=== PATIENT | male | born 1955 | race Caucasian/White ===

== ENCOUNTER → 2023-08-17 11:18 | Outpatient (REF) | payer OTHER, SELFPAY | LOC: RAD 11:18 | PROVIDERS: ATTENDING PHYSICIAN Family Medicine | DX: M25.551 Pain in right hip (principal) | CPT/HCPCS: 73502 ==

== ENCOUNTER → 2023-10-13 11:11 | Outpatient (REF) | payer OTHER, SELFPAY | LOC: RAD 11:11 | PROVIDERS: ATTENDING PHYSICIAN Family Medicine | DX: R07.9 Chest pain, unspecified (principal) | CPT/HCPCS: 71046 ==

== ENCOUNTER 2024-09-03 11:41 | Emergency (ER) | payer OTHER, MEDICARE, SELFPAY ==
[2024-09-03 11:42] VITALS: BP 121/70
--- NOTE | 2024-09-03 12:59 | ED.GENMED ---
History of Present Illness
General
Chief Complaint: Eye Problems
Time Seen by Provider: 09/03/24 12:21
History of Present Illness
History of Present Illness:
69-year-old male with history of hypertension presenting for left eye pain. Patient reports yesterday he poked himself in the eye with a straw after he was pruning his plants. Patient reports pain and redness to the left eye. Also reports some
blurred vision. He wears glasses at baseline. Reports generalized pain with eye movement. Denies any additional injuries
Past History
Past History
ED Past Medical History: Psychiatric
Social History
Tobacco: Other
Alcohol: Other
Drug: Other
Living: with family
Family History
Family History: Negative Sudden
Phy Exam
Physical Exam
Physical Exam:
General: Well-appearing, no clinical signs of dehydration, nontoxic and in no acute distress
HEENT: protecting airway, pupils equal and reactive, redness to the lateral aspect of left sclera
Neck: appears supple
CV: Normal heart rate, regular rhythm, no evidence of cyanosis
Resp: No accessory muscle use, no increased work of breathing, lungs clear to auscultation bilaterally
Abd: No distention
Extremities: No deformities, no swelling
Neuro: alert, no focal neurologic deficit
: deferred
Rectal: deferred
Psych: Normal affect
Skin: Intact
Course
Orders/Labs/Results
Orders:
Orders
09/03/24 12:52
Erythromycin (Ilotycin) [Erythromycin 0.5% Ophthalmic Ointment] See Dose Instructions OPHTH NOW STA
Vital Signs
Initial and Last Documented VS:
Initial Vital Signs
Temp Pulse Resp BP Pulse Ox
98.4 F 68 16 121/70 98
09/03/24 11:42 09/03/24 11:42 09/03/24 11:42 09/03/24 11:42 09/03/24 11:42
Last Documented Vital Signs
Temp Pulse Resp BP Pulse Ox
98.4 F 68 16 121/70 98
09/03/24 11:42 09/03/24 11:42 09/03/24 11:42 09/03/24 11:42 09/03/24 11:42
MDM/Problems Addressed
MDM/Problems Addressed:
69-year-old male presenting for left eye discomfort after he poked himself with a shrub yesterday. Vitals normal.
On exam patient resting comfortably, no acute distress or discomfort. Irritation and erythema to the left sclera. No significant proptosis, no swelling to the eyelids. Extraocular movements are intact. Pupils are equal and reactive. Visual
acuity normal bilaterally. Stained with fluorescein, no corneal abrasion, abrasion to the lateral sclera. Will start on erythromycin ointment given mechanism of injury. Otherwise feel stable for discharge with outpatient ophthalmology follow-up.
Ointment provided in the ER. Return precautions discussed
*Critical Care Note
Total Time (30-74mins, 75-104mins- exclusive of procedures): Not Applicable
ED Attending Note
-
Portions of this chart may have been created with voice recognition software.� Occasional wrong word or��sound alike� substitutions may have occurred due to the inherent limitations of voice recognition software.
Discharge Plan
Departure
Prescriptions:
No Action
trazodone 150 MG tablet
50 mg PO HS
diclofenac sodium 25 MG tablet,delayed release (DR/EC)
50 mg PO BID
cefadroxil [Duricef] 500 MG capsule
500 mg PO BID Qty: 20 0RF
lorazepam 0.5 MG tablet
0.5 mg PO Q4HPRN PRN (Reason: anxiety)
hydrocodone-acetaminophen 1 TABLET tablet
1 - 2 tab PO Q4HPRN PRN (Reason: moderate to severe pain) Qty: 12 0RF
hydrocodone-acetaminophen 1 TABLET tablet
1 - 2 tab PO Q4HPRN PRN (Reason: pain) Qty: 10 0RF
cephalexin 500 MG capsule
500 mg PO TID 2 Days Qty: 6 0RF
Referrals:
Arcadio Capellan DO [Family Provider, Family Practice]
Interventions
Interventions:
*General Assessment Last Done: 09/03/24 12:13
*Neglect/Abuse Screening Last Done: 09/03/24 12:13
*ED- Fall Risk Assessment Last Done: 09/03/24 12:13
*ED COVID-19 Vaccine History Last Done: 09/03/24 12:13
Discharge Date and Time
Print Language: JAPANESE
[2024-09-03] MEDS: ERYTHROMYCIN 0.5% OPHTHALMIC OINTMENT 1 APPLIC OPHTH (13:00)
== END 2024-09-03 13:29 | disposition home or self-care (01) ==
LOC: EMR 11:41
PROVIDERS: EMERGENCY PHYSICIAN Student in an Organized Health Care Education/Training Program; FAMILY PHYSICIAN Family Medicine
DX: S05.02XA Injury of conjunctiva and corneal abrasion without foreign body, left eye, initial encounter (principal); W22.8XXA Striking against or struck by other objects, initial encounter; I10 Essential (primary) hypertension
CPT/HCPCS: 99283

== ENCOUNTER → 2025-02-22 12:32 | Outpatient (REF) | payer OTHER, SELFPAY | LOC: REG 12:32 | PROVIDERS: ATTENDING PHYSICIAN Family Medicine | DX: M54.50 Low back pain, unspecified (principal) | CPT/HCPCS: 72072; 72110 ==